=== PATIENT | female | born 1995 | race African-American/Black ===

== ENCOUNTER 2017-01-01 09:13 | Emergency (ER) | payer OTHER ==
[2017-01-01 09:25] VITALS: BP 149/90; PULSE 110; TEMP 98.4; BMI 46.0
[2017-01-01] MEDS ORDERED: IBUPROFEN 600 MG TABLET (FP) PO ONE ×2 (10:52→10:57)
--- NOTE | 2017-01-01 10:56 | PDOC ---
History of Present Illness - General Chief Complaint: Sore Throat Stated Complaint: FLU SYMPTOMS Time Seen by Provider: 01/01/17 10:09 History Source: Patient Exam Limitations: No Limitations - History of Present Illness Initial Comments: 01/01/17 10:53 Patient is here tearful, with complaints of sore throat pain, earache, headache , generalized body aches and fevers/chills 2 days. States mother was ill last week with same but did not seek medical attention and is uncertain as to type of illness. 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 Timing/Duration: reports: constant, changing over time, getting worse Severity: reports: moderate Associated Symptoms: reports: cough, dizziness, earache, fever/chills, headache , muscle aches, nasal congestion, sore throat Past History - Travel Traveled outside of the country in the last 30 days: No Close contact w/someone who was outside of country & ill: No - Past Medical History Allergies/Adverse Reactions: Allergies Allergy/AdvReac Type Severity Reaction Status Date / Time No Known Allergies Allergy Verified 01/01/17 09:25 Home Medications: Ambulatory Orders Azithromycin [Zithromax -] 250 mg PO UTDICT #6 tab 01/01/17 Asthma: No Cancer: No Cardiac Disorders: No Diabetes: No HTN: No Seizures: No Thyroid Disease: No - Psycho/Social/Smoking Cessation Hx Suicidal Ideation: No Smoking History: Never smoked Have you smoked in the past 12 months: No Information on smoking cessation initiated: No Hx Alcohol Use: No Drug/Substance Use Hx: No Substance Use Type: None Hx Substance Use Treatment: No Respiratory Specific PMHX - Complaint Specific PMHX Bronchitis: No Pneumonia: No Review of Systems - Review of Systems Able to Perform ROS?: Yes Is the patient limited Norwegian proficient: Yes Constitutional: Yes: Symptoms Reported HEENTM: Yes: Symptoms Reported, See HPI, Nose Congestion, Throat Pain, Mouth Pain, Difficulty Swallowing Respiratory: Yes: Symptoms reported, See HPI, Cough Cardiac (ROS): No: Symptoms Reported ABD/GI: Yes: Symptoms Reported, Nausea. No: Vomiting : No: Symptoms Reported Musculoskeletal: Yes: Symptoms Reported, Muscle Pain All Other Systems: Reviewed and Negative *Physical Exam - Vital Signs Last Vital Signs Temp Pulse Resp BP Pulse Ox 98.4 F 110 H 18 149/90 100 01/01/17 09:22 01/01/17 09:22 01/01/17 09:22 01/01/17 09:22 01/01/17 09:22 - Physical Exam General Appearance: Yes: Nourished, Appropriately Dressed, Mild Distress, Moderate Distress HEENT: positive: JESSICA, TMs Normal (congestive but landmarks easily visualized), Pharyngeal Erythema (course but clear), Tonsillar Exudate, Nasal Congestion ( yellowish clear drainage), Rhinorrhea. 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-XII NML intact, Fully Oriented, Alert, Normal Mood/ Affect, Normal Response, Motor Strength 5/5 Progress Note - Progress Note Progress Note: Patient influenza testing negative, rapid strep negative however patient's clinical symptoms indicate infection therefore we will treat with Zithromax *DC/Admit/Observation/Transfer Diagnosis at time of Disposition: Upper respiratory infection, acute - Discharge Dispostion Disposition: HOME Condition at time of disposition: Stable Admit: No - Patient Instructions Printed Discharge Instructions: Acute Bronchitis Additional Instructions: Rest, drink lots of fluids: Teas, water, soups, Pedialyte Saltwater gargles Steamy showers/seem to face break up mucus Avoid contact with others until fevers and cough resolved Lots of handwashing and good hygiene Continue [id number] medications for symptomatic relief Tylenol or Motrin for fever and pain Please Zithromax as directed Followup with private physician in one to 2 days as needed Return to emergency department for worsened symptoms, fevers, dehydration - Post Discharge Activity Work/School Note: Back to Work
== END 2017-01-01 11:35 | disposition home or self-care (01) ==
LOC: JERFT 09:13
DX: J06.9 Acute upper respiratory infection, unspecified (principal); B97.89 Other viral agents as the cause of diseases classified elsewhere
CPT/HCPCS: 87070; 87077; 87430; 87804; 99281-25

== ENCOUNTER 2017-08-16 11:13 | Emergency (ER) | payer OTHER ==
[2017-08-16 11:24] VITALS: BP 149/60; PULSE 98; TEMP 98.2; BMI 33.6
--- NOTE | 2017-08-16 12:34 | PDOC ---
History of Present Illness - General Chief Complaint: Edema Stated Complaint: SWOLLEN LEGS/FEET Time Seen by Provider: 08/16/17 12:00 History Source: Patient Exam Limitations: No Limitations - History of Present Illness Initial Comments: 08/16/17 12:19 22-year-old female presents to the ED with complaints of worsening bilateral lower extremity pain which she describes a cramping to her anterior shins for the past 3 days. Patient denies redness swelling or skin discoloration but does state pain is worsened with movement. Patient denies recent change in activity, recent illness or recent travel. Patient denies injury to affected areas. Patient states did have a gastric sleeve done in February but states her diet has been consistent. Patient denies posterior calf pain chest pain, shortness of breath, or fever. Severity: moderate Past History - Travel Traveled outside of the country in the last 30 days: No - Past Medical History Allergies/Adverse Reactions: Allergies Allergy/AdvReac Type Severity Reaction Status Date / Time No Known Allergies Allergy Verified 08/16/17 11:24 Home Medications: Ambulatory Orders Azithromycin [Zithromax -] 250 mg PO UTDICT #6 tab 01/01/17 Asthma: No Cancer: No Cardiac Disorders: No Diabetes: No HTN: No Seizures: No Thyroid Disease: No - Surgical History Abdominal Surgery: Yes (Gastric sleeve 2016) - Suicide/Smoking/Psychosocial Hx Smoking History: Never smoked Have you smoked in the past 12 months: No Information on smoking cessation initiated: No Hx Alcohol Use: Yes (occasional) Drug/Substance Use Hx: No Substance Use Type: None Hx Substance Use Treatment: No Patient Lives Alone: No Lives with/in: parents Review of Systems - Review of Systems Able to Perform ROS?: Yes Constitutional: No: Symptoms Reported Respiratory: No: Symptoms reported Cardiac (ROS): No: Symptoms Reported Musculoskeletal: Yes: Muscle Pain. No: Joint Pain, Joint Swelling, Muscle Weakness, Joint Stiffness Integumentary: No: Symptoms Reported Neurological: No: Symptoms reported Endocrine: No: Symptoms Reported Hematologic/Lymphatic: No: Symptoms Reported *Physical Exam - Vital Signs Last Vital Signs Temp Pulse Resp BP Pulse Ox 98.2 F 98 H 18 149/60 98 08/16/17 11:22 08/16/17 11:22 08/16/17 11:22 08/16/17 11:22 08/16/17 11:22 - Physical Exam General Appearance: Yes: Nourished, Appropriately Dressed HEENT: negative: Pale Conjunctivae Neck: positive: Normal Thyroid Cardiovascular: positive: Regular Rhythm, Regular Rate. negative: Murmur Extremity: positive: Normal Inspection, Normal Range of Motion, Tender (over anterior garcia bilaterally). negative: Normal Capillary Refill Integumentary: positive: Normal Color, Warm, Moist Neurologic: positive: Motor Strength /5 ED Treatment Course - LABORATORY CBC & Chemistry Diagram: 08/16/17 12:30 08/16/17 12:30 Medical Decision Making - Medical Decision Making 08/16/17 12:34 Patient complaints of worsening lower extremity muscle pain for the past 3-4 days. Patient has no other complaints at this time. Patient with recent gastric sleeve but states that has been consistent. Patient will be ordered for CBC, comp and magnesium to rule out electrolyte abnormalities. 08/16/17 13:31 Laboratory Tests 08/16/17 08/16/17 12:30 12:30 WBC 7.2 Hgb 15.2 D Hct 45.5 H D MCV 104.3 H Sodium 139 Potassium 4.2 D Chloride 97 L D Carbon Dioxide 29 D Anion Gap 13 BUN 5 L D Creatinine 0.6 Random Glucose 84 Magnesium 1.9 AST 68 H ALT 56 Alkaline Phosphatase 122 H 08/16/17 13:33 Patient will be given an injection of Toradol and discharged home to continue with Motrin and follow-up with her primary care physician. Patient also recommended to eat well-balanced meals throughout the day. *DC/Admit/Observation/Transfer Diagnosis at time of Disposition: Cramps of lower extremity - Discharge Dispostion Disposition: HOME Condition at time of disposition: Good - Referrals Referrals: Zana Juarez [Primary Care Provider] - - Patient Instructions Printed Discharge Instructions: DI for Leg Pain Additional Instructions: May take Motrin for discomfort every 6-8 hours. Otherwise apply heating pad to the affected area. Follow up with her primary care physician.
[2017-08-16 12:41] LABS: BASOPHIL 0.5 % (0-2.0); EOSINOPHIL 1.9 % (0-4.5); MCH 34.8 pg (25.7-33.7); MCHC 33.4 g/dl (32.0-36.0); MEAN CELL VOLUME 104.3 fl (80-96); MEAN PLT VOLUME 7.8 fl (7.5-11.1); NEUTROPHILS 65.5 % (42.8-82.8); PLATELET COUNT 315 K/MM3 (134-434); RDW 21.8 % (11.6-15.6); WHITE BLOOD COUNT 7.2 K/mm3 (4.0-10.0)
[2017-08-16 13:12] LABS: ALBUMIN 3.5 g/dl (3.4-5.0); ALK PHOS 122 U/L (45-117); ANION GAP 13 (8-16); BILIRUBIN,TOTAL 0.8 mg/dL (0.2-1.0); CALCIUM 9.3 mg/dL (8.5-10.1); CO2 29 mmol/L (21-32); CREATININE 0.6 mg/dL (0.55-1.02); GLUCOSE,RANDOM 84 mg/dL (74-106); SGPT/ALT 56 U/L (12-78); TOT PROT 7.6 g/dl (6.4-8.2)
[2017-08-16 13:20] LABS: MAGNESIUM 1.9 mg/dL (1.8-2.4); SGOT/AST 68 U/L (15-37)
[2017-08-16 13:22] LABS: ANISOCYTOSIS 2+; MACROCYTOSIS 1+; PLATELET ESTIMATE ADEQUATE (NORMAL)
[2017-08-16] MEDS ORDERED: KETOROLAC TROMETHAMINE 60 MG/2 ML VIAL IM ONE (13:32)
[2017-08-16] MEDS ORDERED: KETOROLAC TROMETHAMINE 60 MG/2 ML VIAL ONE (13:35)
== END 2017-08-16 13:42 | disposition home or self-care (01) ==
LOC: JERFT 11:13 → JER 11:13 → JERFT 13:42
PROC: 3E0233Z Introduction of Anti-inflammatory into Muscle, Percutaneous Approach (ICD-10-PCS; principal; 2017-08-16)
DX: R25.2 Cramp and spasm (principal)
CPT/HCPCS: 36415; 80053; 83735; 85025; 99281-25

== ENCOUNTER 2021-10-04 05:55 | Inpatient (IN) | payer OTHER ==
[2021-10-04] MEDS: ELECTROLYTE-148 SOLN 1,000 ML IV SCH (06:00)
[2021-10-04] MEDS ORDERED: ELECTROLYTE-148 SOLN 500 ML IV ONE (06:20)
[2021-10-04] MEDS ORDERED: CITRIC ACID/SODIUM CITRATE 30 ML UNIT-DOSE CUP PO ONE ×2 (06:45→07:03)
[2021-10-04 06:59] VITALS: BMI 39.1
[2021-10-04] MEDS ORDERED: ONDANSETRON 4 MG/2 ML VIAL IVPUSH PRN (07:37)
[2021-10-04] MEDS ORDERED: morphine SULFATE/PF 1 MG/2 ML (2cc Syringe - QUVA) EP ONE (07:37)
[2021-10-04] MEDS ORDERED: morphine SULFATE (PF) 1 MG/2 ML SYRINGE ONE (07:44)
[2021-10-04] MEDS ORDERED: ceFAZolin SODIUM 1 GM VIAL ONE (07:45)
[2021-10-04] MEDS ORDERED: PHENYLEPHRINE HCL 10 MG/1 ML SINGLE DOSE VIAL ONE (08:16)
[2021-10-04] MEDS ORDERED: OXYTOCIN 10 UNIT/ML 10ML MDV ONE (08:20)
[2021-10-04] MEDS ORDERED: MIDAZOLAM HCL 2 MG/2 ML SINGLE DOSE VIAL ONE (08:48)
[2021-10-04] MEDS ORDERED: ONDANSETRON 4 MG/2 ML VIAL IVPB PRN (09:32)
[2021-10-04] MEDS ORDERED: ACETAMINOPHEN 1000 MG/100 ML VIAL IVPB PRN (09:32)
[2021-10-04] MEDS ORDERED: BACITRACIN 15 GM TUBE TOPICAL OINTMENT TP ONE (10:30)
[2021-10-04] MEDS ORDERED: OXYTOCIN 20 UNITS in 0.9% NS 20 UNIT/1,000 ML INFUS.BAG IV ONE (10:49)
[2021-10-04] MEDS: IBUPROFEN 800 MG/8 ML IJ IVPB PRN ×2 (16:34→23:25)
[2021-10-04] MEDS: CEFAZOLIN 2 GM in DEXTROSE 5%-WATER 100 ML IVPB SCH (17:43)
[2021-10-05] MEDS: CEFAZOLIN 2 GM in DEXTROSE 5%-WATER 100 ML IVPB SCH (00:56)
[2021-10-05 07:42] LABS: BASO % 0.1 % (0-2.0); EOS % 0.9 % (0-4.5); HEMATOCRIT 29.5 % (32.4-45.2); HEMOGLOBIN 9.8 GM/dL (10.7-15.3); MCH 28.6 pg (25.7-33.7); MCHC 33.2 g/dl (32.0-36.0); MEAN CELL VOLUME 86.2 fl (80-96); MONO % 7.8 % (3.8-10.2); NEUT % 80.2 % (42.8-82.8); PLATELET COUNT 225 10^3/uL (134-434); RBC 3.42 M/mm3 (3.60-5.2); RDW 14.3 % (11.6-15.6); WHITE BLOOD COUNT 9.3 K/mm3 (4.0-10.0)
[2021-10-05] MEDS ORDERED: BISACODYL 10 MG SUPP.RECT RC PRN (09:32)
[2021-10-05] MEDS: ENOXAPARIN NA (PORCINE) 40 MG/0.4 ML DISP.SYRIN SQ SCH (10:03)
[2021-10-05] MEDS: oxyCODONE HCL 5 MG TABLET PO PRN ×3 (11:00→21:30)
[2021-10-05] MEDS: SIMETHICONE 80 MG TAB.CHEW (FP) PO PRN ×2 (16:35→21:30)
[2021-10-05] MEDS: SENNOSIDES/DOCUSATE COMBO (SENNA PLUS) TABLET (UD) PO PRN (21:29)
[2021-10-05] MEDS: OXYTOCIN 20 UNITS in 0.9% NS 20 UNIT/1,000 ML INFUS.BAG IV SCH (22:38)
[2021-10-05] MEDS: ELECTROLYTE-148 SOLN 1,000 ML IV SCH ×2 (22:38)
[2021-10-05] MEDS: IBUPROFEN 600 MG TABLET (FP) PO PRN (22:45)
[2021-10-06] MEDS: SIMETHICONE 80 MG TAB.CHEW (FP) PO PRN ×4 (02:04→20:59)
[2021-10-06] MEDS: oxyCODONE HCL 5 MG TABLET PO PRN ×4 (02:37→23:05)
[2021-10-06] MEDS: ENOXAPARIN NA (PORCINE) 40 MG/0.4 ML DISP.SYRIN SQ SCH (09:08)
[2021-10-06] MEDS: IBUPROFEN 600 MG TABLET (FP) PO PRN (12:38)
[2021-10-06] MEDS: ACETAMINOPHEN 325 MG TABLET (FP) PO PRN (12:39)
[2021-10-06] MEDS: SENNOSIDES/DOCUSATE COMBO (SENNA PLUS) TABLET (UD) PO PRN (20:59)
[2021-10-07] MEDS: IBUPROFEN 600 MG TABLET (FP) PO PRN ×2 (03:13→07:55)
[2021-10-07] MEDS: ACETAMINOPHEN 325 MG TABLET (FP) PO PRN ×2 (03:13→10:06)
[2021-10-07] MEDS: SIMETHICONE 80 MG TAB.CHEW (FP) PO PRN (03:14)
[2021-10-07] MEDS: oxyCODONE HCL 5 MG TABLET PO PRN (03:21)
[2021-10-07] MEDS: ELECTROLYTE-148 SOLN 1,000 ML IV SCH ×2 (03:27)
[2021-10-07] MEDS: OXYTOCIN 20 UNITS in 0.9% NS 20 UNIT/1,000 ML INFUS.BAG IV SCH (03:28)
[2021-10-07] MEDS: ENOXAPARIN NA (PORCINE) 40 MG/0.4 ML DISP.SYRIN SQ SCH (10:06)
[2021-10-07 10:41] VITALS: BP 125/72; PULSE 77; TEMP 97.9
== END 2021-10-07 15:55 | disposition home or self-care (01) | DRG 540 ==
LOC: JLDR 05:55 → J3W 11:10
PROVIDERS: ADMIT Specialist; ATTEND Specialist
PROC: 10D00Z1 Extraction of Products of Conception, Low, Open Approach (ICD-10-PCS; principal; 2021-10-04)
DX: O30.043 Twin pregnancy, dichorionic/diamniotic, third trimester (principal); O36.5931 Maternal care for other known or suspected poor fetal growth, third trimester, fetus 1; O34.219 Maternal care for unspecified type scar from previous cesarean delivery; O32.1XX2 Maternal care for breech presentation, fetus 2; Z37.2 Twins, both liveborn; Z3A.35 35 weeks gestation of pregnancy; S67.193A Crushing injury of left middle finger, initial encounter; W23.0XXA Caught, crushed, jammed, or pinched between moving objects, initial encounter; Y92.239 Unspecified place in hospital as the place of occurrence of the external cause
CPT/HCPCS: 36415; 59025; 73140-TC-LT-FY; 85025; 88307-TC